=== PATIENT | male | born 2005 | race African-American/Black ===

== ENCOUNTER 2024-05-08 08:17 | Outpatient (CLI) | payer OTHER, SELFPAY ==
--- NOTE | ~2024-05-08 | CT_ITS ---
EXAMINATION: CT foot RT wo con DATE: 05/08/2024 08:59 INDICATION: Navicular fracture. TECHNIQUE: Computed tomography (CT) of the right foot was performed without intravenous contrast. Aut omated exposure control and iterative reconstruction technique were employed. The dose-length product was 471.86 mGy-cm. COMPARISON: None FINDINGS: There is dorsiflexion of all of the metatarsophalangeal joints. There is a small cleft in p roximal articular surface of navicular with surrounding sclerosis, consistent with a stress fracture. There are small fragments of heterotopic ossification distal to medial and lateral malleoli. There i s mild osteoarthritis of the ankle joint and subtalar joint and many of the midfoot joints. IMPRESSION: 1. Stress fracture of navicular. 2. Mild polyarticular osteoarthritis. Reviewed, dictated and finalized at location A.
== END 2024-05-08 08:18 | disposition home or self-care (01) ==
DX: M84.374A Stress fracture, right foot, initial encounter for fracture (principal); M19.071 Primary osteoarthritis, right ankle and foot
CPT/HCPCS: 73700